=== PATIENT | female | born 1950 | race Caucasian/White ===

== ENCOUNTER 2018-12-19 09:40 | Emergency (ER) | payer MEDICARE ==
--- NOTE | 2018-12-19 10:05 | ED ---
Altered Mental Status - HPI Summary HPI Summary: 68-year-old female with a significant past medical history of atrial fibrillation, hypothyroidism, type 2 diabetes [id number], cataracts reports the emergency department today for complaints of multiple episodes of confusion over the last week. She states the first time this occurred was one week ago on 12/12. She states during this episode she was working and was unable to follow commands and was disoriented to her location within the building. She presented to the emergency department today because she had another of these episodes while working. 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 She says she has been having difficulty controlling her blood sugar recently and believes this may be the culprit. She denies any recent illness or physical pain. At the bedside she is alert and oriented to person, place, time. She states she has been taking her medications as directed and is working with her primary for blood sugar control. She denies fever, chest pain , abdominal pain, pain with urination, headache, no new changes in vision. She denies recent recreational drug use, alcohol use. - History Of Current Complaint Chief Complaint: EDDiabeticProb Stated Complaint: HIGH BLOOD SUGAR Time Seen by Provider: 12/19/18 09:49 Hx Obtained From: Patient Onset/Duration: Unknown Timing: Intermittent Severity Initially: Mild Severity Currently: Mild Character: Confusion Aggravating Factor(s): Unknown Alleviating Factor(s): Unknown Associated Signs And Symptoms: Negative: Dizziness, Nausea, Vomiting, Headache, Weakness, Recently Depressed, Recent Trauma Related History: Similar Episode/Diagnosed As: - She states she had one similar episode one week ago on 12/12/2018 - Allergies/Home Medications Allergies/Adverse Reactions: Allergies Allergy/AdvReac Type Severity Reaction Status Date / Time morphine Allergy Difficulty Verified 12/19/18 09:49 Breathing sulfamethoxazole Allergy Unknown Verified 12/19/18 09:49 [From Bactrim] Reaction Details trimethoprim [From Bactrim] Allergy Unknown Verified 12/19/18 09:49 Reaction Details Home Medications: Home Medications Hydrocortisone 1% CREAM(NF) [Hytone Cream 1%*] 1 applic TOPICAL BID 12/19/18 [ History Confirmed 12/19/18] Nateglinide(NF) [Starlix(NF)] 60 mg PO TID WITH MEALS 12/19/18 [History Confirmed 12/19/18] Nystatin OINT* 1 applic TOPICAL BID 12/19/18 [History Confirmed 12/19/18] Pregabalin CAP(*) [Lyrica CAP(*)] 25 mg PO TID MDD 3 caps 12/19/18 [History Confirmed 12/19/18] PMH/Surg Hx/FS Hx/Imm Hx Endocrine/Hematology History: Reports: Hx Diabetes, Hx Thyroid Disease, Hx Anemia - during menstrual years Denies: Hx Anticoagulant Therapy, Hx Blood Disorders, Hx Blood Transfusions, Hx Bone Marrow Disease, Hx Systemic Lupus Erythematosus, Hx Sickle Cell Disease , Hx Unexplained Bleeding Cardiovascular History: Reports: Hx Cardiomegaly - pt states Dr De La Rosa said her heart was enlarged, Hx Hypertension - on medication, Hx Valvular Heart Disease - States one of her valves is enlarged, Other Cardiovascular Problems/Disorders - thoracic aorta ectasia Respiratory History: Denies: Hx Sleep Apnea, Other Respiratory Problems/Disorders GI History: Reports: Hx Gall Bladder Disease - Gall Stones (gall bladder removed in 1994, Hx Gastroesophageal Reflux Disease, Hx Hiatal Hernia, Hx Irritable Bowel, Other GI Disorders - cholecystectomy 1994 Denies: Hx Cirrhosis, Hx Crohn's Disease, Hx Diverticulosis, Hx Gastrointestinal Bleed, Hx Jaundice, Hx Obstructive Bowel, Hx Ileostomy, Hx Pyloric Stenosis, Hx Ulcer History: Reports: Other Problems/Disorders - Hx of occasional UTIs Musculoskeletal History: Reports: Hx Arthritis - neck, shoulders, and back, Hx Back Problems - pain from arthritis, Other Musculoskeletal History - ganglion right wrist Denies: Hx Rheumatoid Arthritis, Hx Bursitis, Hx Congenital Bone Abnormalities, Hx Fibromyalgia, Hx Gout, Hx Orthopedic Injury, Hx Osteoporosis, Hx Scoliosis, Hx Tendonitis Sensory History: Reports: Hx Cataracts - early stages, Hx Contacts or Glasses - glasses, Hx Vision Problem Denies: Hx Legally Blind, Hx Macular Degeneration, Hx Deafness, Hx Hearing Aid, Hx Hearing Problem Opthamlomology History: Reports: Hx Cataracts - early stages, Hx Contacts or Glasses - glasses, Hx Vision Problem Denies: Hx Legally Blind, Hx Macular Degeneration Neurological History: Reports: Hx Headaches - tension headaches in the past, Other Neuro Impairments/Disorders - HAS INJURED RT SI JOINT PREVIOUSLY Psychiatric History: Reports: Hx Anxiety - on medication, Hx Depression - on medication, Hx Community Mental Health Tx Denies: Hx Attention Deficit Hyperactivity Disorder, Hx Eating Disorder, Hx Panic Disorder, Hx Post Traumatic Stress Disorder, Hx Inpatient Treatment, Hx Schizophrenia, Hx Bipolar Disorder, Hx Suicide Attempt, Hx of Violent Episodes Against Others, Hx Substance Abuse - Cancer History Hx Chemotherapy: No Hx Radiation Therapy: No - Surgical History Surgery Procedure, Year, and Place: BILATERAL CARPAL TUNNEL, TUBAL LIGATION, CHOLECYSTECTOMY. LEFT SHOULDER ROTATOR CUFF REPAIR Hx Anesthesia Reactions: Yes - 1994 had trouble breathing, thinks it was from the morphine Infectious Disease History: No Infectious Disease History: Denies: Hx Hepatitis, Traveled Outside the [place] in Last 30 Days - Family History Family History: No FHx of breast CA. - Social History Alcohol Use: None Alcohol Amount: Less than once a month Substance Use Type: Reports: None Smoking Status (MU): Never Smoked Tobacco Review of Systems Constitutional: Negative Eyes: Negative Cardiovascular: Negative Respiratory: Negative Gastrointestinal: Negative Genitourinary: Negative Musculoskeletal: Negative Skin: Negative Neurological: Negative All Other Systems Reviewed And Are Negative: Yes Physical Exam Triage Information Reviewed: Yes Vital Signs On Initial Exam: Initial Vitals Temp Pulse Resp BP Pulse Ox 98 F 56 18 145/66 96 12/19/18 09:44 12/19/18 09:44 12/19/18 09:44 12/19/18 09:44 12/19/18 09:44 Vital Signs Reviewed: Yes Appearance: Positive: Well-Appearing, No Pain Distress, Well-Nourished Skin: Positive: Warm, Skin Color Reflects Adequate Perfusion Head/Face: Positive: Normal Head/Face Inspection Eyes: Positive: Normal, EOMI ENT: Positive: Hearing grossly normal Respiratory/Lung Sounds: Positive: Clear to Auscultation, Breath Sounds Present Cardiovascular: Positive: RRR, S1, S2 Abdomen Description: Positive: Nontender, Soft. Negative: Distended, Guarding Bowel Sounds: Positive: Present Musculoskeletal: Positive: Strength/ROM Intact Neurological: Positive: Sensory/Motor Intact, Alert, Oriented to Person Place, Time, Normal Gait, Speech Normal. Negative: Cerebellar Dysfunction, Disoriented , Ataxic Gait, Facial Symmetry Psychiatric: Positive: Normal AVPU Assessment: Alert Procedures - Sedation Patient Received Moderate/Deep Sedation with Procedure: No Diagnostics - Vital Signs Vital Signs Temp Pulse Resp BP Pulse Ox 12/19/18 09:44 98 F 56 18 145/66 96 - Laboratory Result Diagrams: 12/19/18 10:21 12/19/18 10:21 Lab Statement: Any lab studies that have been ordered have been reviewed, and results considered in the medical decision making process. Altered Mental Statu Course/Dx - Course Course Of Treatment: Patient presented to the emergency department and promptly was seen and evaluated. An EKG was performed which showed sinus bradycardia at a rate of 53 bpm. There is evidence of first-degree block which is new when compared to prior EKGs performed on 02/28/2006. There is left axis deviation with evidence of a left anterior fascicular block and probable left ventricular hypertrophy. There is evidence of Q waves but these are also found on prior EKGs. Upon arrival at point of care fingerstick blood glucoses performed and revealed a blood sugar of 249. Laboratory studies to investigate metabolic abnormalities which could explain her confusion were ordered as well as a CT of the brain without contrast to look for any central neurologic pathology causing her symptoms especially considering her history of atrial fibrillation. Laboratory studies resulted showing no signs of anemia or leukocytosis. Chemistry panel revealed mild hyponatremia however this is incorrect due to the hyperglycemia blood sugar of 301. Her corrected sodium is 137, which is normal. Her kidney function is elevated however this is her baseline. Her TSH resulted as 3.21 which is within normal limits. Patient was unable to produce a urine sample however although urinary tract infections may cause altered mental status especially in this population, the patient feels she does not have UTI as she has had them in the past and she is currently asymptomatic of all dysuria, urgency, frequency, fever. 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 The patient's orientation, mentation, vital signs remained stable during the duration of her stay. She was ambulated and did this with no difficulty or signs of deficits. It was deemed that there is no acute medical emergency and she is to follow-up with her primary care provider for further evaluation of her symptoms. She agrees with this plan. She was informed to return to the emergency department if she develops any new or worsening symptoms. - Diagnoses Differential Diagnosis/HQI/PQRI: Metabolic Disorder, TIA, Other - hypothyroidism Provider Diagnoses: Confusion Discharge ED - Sign-Out/Discharge Documenting (check all that apply): Patient Departure - Discharge Plan Condition: Stable Disposition: HOME Patient Education Materials: Altered Mental Status (ED) Forms: *Work Release Referrals: Juan Tate MD [Primary Care Provider] - Additional Instructions: You were seen in the emergency department today due to episodic confusion. Laboratory studies and a CT of your head showed no acute abnormalities and no life-threatening pathology. Please follow-up with your primary care provider for further investigation of your symptoms. Please return to emergency department if you develops any new or worsening symptoms. Please refrain from any recreational drugs or alcohol use until you are evaluated by medical professional. Please continue taking her medications as directed. - Billing Disposition and Condition Condition: STABLE Disposition: Home
--- OUTSIDE RECORDS SUMMARY | 2018-12-19 10:24 | XMS REPORT | Continuity of Care Document ---
:1950 External Reference #:[id number] Author Name Lon Miller M.D. Address [address] [place] [address] Care Team Providers Name Role Phone Juan Tate M.D. - Internal Care Team Information Director Of Psychiatry Medicine Wilber De La Rosa M.D. - Cardiovascular Care Team Information Director Of Psychiatry Disease Fabián Ziegler M.D. - Endocrinology, Care Team Information Director Of Psychiatry [phone] Diabetes & Metabolism Problems Active Problems Provider Date Supraventricular tachycardia Onset: Type 2 diabetes mellitus Onset: Note: 2002 Mixed anxiety and depressive disorder Onset: Essential hypertension Onset: Combined form of senile cataract Lon Miller M.D. Onset: 03/07/2016 Type 2 diabetes mellitus with mild Lon Miller M.D. Onset: 12/17/2018 nonproliferative diabetic retinopathy without macular edema, bilateral Social History Type Date Description Comments Sex Unknown ETOH Use Occasionally consumes alcohol Tobacco Use Start: Unknown Patient has never smoked Smoking Status Reviewed: 12/17/18 Patient has never smoked Allergies, Adverse Reactions, Alerts Active Allergies Reaction Severity Comments Date Morphine 03/07/2016 Medications Active Medications SIG Qnty Indications Ordering Provider Date Artificial Tears as needed Lon Miller, 09/16/2017 0.1-0.3% M.D. Solution Abilify Unknown 2mg Tablets Levothyroxine Sodium Unknown 75mcg Tablets Magnasweet 135 Unknown 135 Powder Benefiber Unknown Powder Fish Oil + D3 Unknown [id number] Capsules Wilber Joshi M.D. 300mg Caps ER 24HR Juan Valverde 5mg Tablets M.D. Vitamin B12 Unknown 1000mcg Tablets ER Buspirone HCL Unknown 10mg Tablets Calcium 500 + D 2 every day Unknown [id number] Tablets Multi Vitamin Daily Unknown Tablets Aspirin Unknown 81mg Tablets DR Wxqms-0-Mari Ethyl Esters Unknown 1gm Capsules Metoprolol Succinate ER Unknown 100mg Tablets ER 24HR Metformin HCL Unknown 1000mg Tablets Sertraline HCL Unknown 100mg Tablets Lisinopril-Hydrochlorothi Unknown azide 20-25mg Tablets Potassium Chloride Maryann Unknown ER 10Meq Tablets ER Omeprazole Unknown [address]mg C[address] DR Diltiazem HCL ER Unknown 240mg Caps ER 24HR Immunizations Description No Information Available Vital Signs Description No Information Available Results Description No Information Available Procedures Description No Information Available Medical Devices Description No Information Available Encounters Description No Information Available Assessments Date Code Description Provider 12/17/2018 H25.813 Combined forms of age-related cataract, Lon Miller M.D. bilateral 12/17/2018 E11.3293 Type 2 diabetes mellitus with mild Lon Miller M.D. nonproliferative diabetic retinopathy without macular edema, bilateral Plan of Treatment 12/17/2018 - Lon Miller M.D.H25.813 Combined forms of age-related cataract , bilateralComments:Smoking can increase the risk of developing or worsening any eye related disease, as well as affect your overall health. If you are a smoker, we strongly recommend that you quit.If you are not a smoker, we strongly recommend that you do not start. You have been diagnosed with cataracts. They are limiting your vision, and I am unable to improve you with new glasses. Our next step is to schedule Cataract surgery and all necessary appointments, which Deyanira will do for you. We recommend that you write down any questions you may have and bring them to your preoperative appointment so that Dr. Tellez answer them for you. If you have any questions or concerns, you can reach Deyanira Guevara at .Follow up:For preop exam before surgery.E11.3293 Type 2 diabetes mellitus with mild nonproliferative diabetic retinopathy without macular edema, bilateralComments:I can detect diabetic changes in your eyes. Proper control of your diabetes is important for the health of your eyes. It is important that you keep all of your follow up appointments. Dr. Miller has sent a report to your primary care doctor, letting them know the current status of your retina. Functional Status Description No Information Available Mental Status Description No Information Available Referrals Description No Information Available
--- OUTSIDE RECORDS SUMMARY | 2018-12-19 10:24 | XMS REPORT | Continuity of Care Document ---
:1950 External Reference #:[id number] Author Name Eleazar Ziegler MD (transmitted by agent of provider Peg Ray) Address [address] [place] [address] Problems Active Problems Provider Date Paroxysmal supraventricular Wilber De La Rosa M.D., [facility], Onset: 10/27/2013 tachycardia [facility] Essential hypertension Wilber De La Rosa M.D., [facility], Onset: 10/18/2015 [facility] Thoracic aortic ectasia Wilber De La Rosa M.D., [facility], Onset: 10/18/2015 [facility] Social History Type Date Description Comments Sex Unknown Tobacco Use Start: Unknown not smoking Pt denies ever smoking a pipe, cigar, e-cigarettes, or using chewing tobacco. ETOH Use Rarely consumes alcohol Tobacco Use Start: Unknown End: Patient is a former smoked a couple Unknown smoker times as a teenager. No other time . Recreational Drug Use Denies Drug Use Smoking Status Reviewed: 12/12/18 Patient is a former smoked a couple smoker times as a teenager. No other time . Exercise Type/Frequency Exercises regularly walking daily for work Allergies, Adverse Reactions, Alerts Active Allergies Reaction Severity Comments Date Morphine SOB Severe 10/27/2013 Medications Active Medications SIG Qnty Indications Ordering Date Provider Metformin HCL ER 2 tablets by 60tabs Eleazar Ziegler MD 12/12/2018 750mg mouth every day Tablets ER 24HR at bedtime Pioglitazone HCL take 15mg once 30tabs E11.65 Eleazar Ziegler MD 12/12/2018 15mg daily Tablets Diltiazem CD 1 by mouth every 90caps Wilber Kumar 04/24/2016 300mg Caps day Vivian De La Rosa, ER 24HR [facility] Pregabalin 1 capsule 3 Unknown 25mg Capsules times per day, code c Levothyroxine Sodium 1 by mouth every Unknown day 75mcg Tablets Nateglinide 1-2 tabs by 150tabs Eleazar Ziegler MD 60mg Tablets mouth three times a day before meals Aripiprazole 1 tab by mouth Graham Campos, 2mg Tablets daily Omeprazole 1 by mouth every Unknown 40mg Capsules day Magnesium 1 tablet po Unknown daily Potassium Chloride 1 tablet po Juan Tate Maryann ER twice daily AMD Mathew 20Meq Tablets ER Benefiber 1 tbs in coffee Unknown Powder once daily Anti-Diarrheal 1 cap po b.i.d Unknown Calcium + D3 2 by mouth every 90tabs Unknown day pm [id number] Tablets Sertraline HCL 2 tablet po in 90tabs Unknown 100mg the am Tablets Metoprolol Tartrate 1 by mouth twice Unknown 100mg a day Tablets Lisinopril-Hydrochloro 1 tablet po 30tabs Unknown thiazide b.i.d 20-25mg Tablets Buspirone HCL take 1 tablet 45tabs Unknown 30mg and 1/2 tablet Tablets Am/PM Multivitamins daily Unknown Acetaminophen Extra 1-2 tabs by 120tabs Unknown Strength mouth every 8 500mg Tablets hours as needed for pain or fever Medications Administered in Office Medication SIG Qnty Indications Ordering Provider Date Celestone 3 mg and 3mg Carmine Peña MD 04/27/2017 Injection Inj, Regadenoson, 0.1 MG Wilber De La Rosa M.D., 04/03/2016 Injection THANH MARSHALL Aminophylline Wilber De La Rosa M.D., 04/03/2016 Injection THANH MARSHALL Technetium TC 99M Wilber De La Rosa M.D., 04/03/2016 Tetrofosmin, Per Unit Dose Up THANH MARSHALL To 40 Millicuries Injection Inj, Regadenoson, 0.1 MG Wilber De La Rosa M.D., 09/20/2012 Injection THANH MARSHALL Technetium TC 99M Wilber De La Rosa M.D., 09/20/2012 Tetrofosmin, Per Unit Dose Up [facility], FAS[facility] To 40 Millicuries Injection Immunizations Description No Information Available Vital Signs Date Vital Result Comment 12/12/2018 3:46pm Height 61.5 inches 5'1.50" Weight 138.00 lb w/ shoes Heart Rate 73 /min BP Systolic Sitting 152 mmHg BP Diastolic Sitting 82 mmHg BMI (Body Mass Index) 25.6 kg/m2 09/06/2018 10:40am Height 61.5 inches 5'1.50" Weight 137.00 lb Heart Rate 76 /min regular BP Systolic Sitting 134 mmHg LA Regular Cuff BP Diastolic Sitting 98 mmHg LA Regular Cuff BP Systolic Standing 136 mmHg LA Regular Cuff BP Diastolic Standing 98 mmHg LA Regular Cuff Respiratory Rate 16 /min Pain Level 0 O2 % BldC Oximetry 96 % BMI (Body Mass Index) 25.5 kg/m2 Results Test Acquired Date Facility Test Result H/L Range Note Laboratory test 10/17/2018 [facility] Rubella Screen Immune Immune finding [address] [place], [place] [id number] [phone] Mumps Igg 10/17/2018 [facility] Mumps Virus Positive [address] [place] [address] [phone] Mumps IgG Antibody Index 4.6 2 Rubeola Measles 10/17/2018 [facility] Rubeola (Measles) Positive [address] Igg [address] IgG Antibody [place], [place] [id number] [phone] Rubeola IgG Antibody Index 4.0 4 Varicella Zoster 10/17/2018 [facility] Varicella-Zoster IgG Positive 5 Igg AB [address] [place] [address] [phone] Varicella IgG Antibody Index 3.4 6 Quantiferon-TB 10/17/2018 [facility] QuantiferonTb Negative Negative 7 Gold Plus [address] [place] [address] [phone] TB1 Ag minus Nil Result 0.00 IU/mL TB2 Ag minus Nil Result -0.01 IU/mL Mitogen minus Nil Result 11.37 IU/mL Nil Result 0.02 IU/mL 1 Results suggest response to immunization or prior exposure to the virus. REFERENCE VALUE Vaccinated: Positive (>=1.1 AI) Unvaccinated: Negative (<=0.8 AI) 2 Test Performed by: [place] [address] [employer] Shirring Machine Operator: Tad Ochoa M.D. Ph.D.; CLIA# [id number] 3 Results suggest response to immunization or prior exposure to the virus. REFERENCE VALUE Vaccinated: Positive (>=1.1 AI) Unvaccinated: Negative (<=0.8 AI) 4 Test Performed by: [facility] [place] [address] Automatic Shirring Machine Operator: Tad Ochoa M.D. Ph.D.; CLIA# [id number] 5 Results suggest response to immunization or prior exposure to the virus. REFERENCE VALUE Vaccinated: Positive (>=1.1 AI) Unvaccinated: Negative (<=0.8 AI) 6 Test Performed by: [place] [address] Automatic Shirring Machine Operator: Tad Ochoa M.D. Ph.D.; CLIA# [id number] 7 M. tuberculosis infection NOT likely Procedures Date Code Description Status 09/06/2018 71431 EKG Tracing & Interpretation Completed Medical Devices Description No Information Available Encounters Type Date Location Provider Dx Diagnosis Office Visit 09/06/2018 Cardiology Wilber Kumar I77.810 Thoracic aortic 11:30a [facility]ian [facility] La [facility] I10 Essential (primary) hypertension I47.1 Supraventricular tachycardia R94.31 Abnormal electrocardiogram [ECG] [EKG] Assessments Date Code Description Provider 12/12/2018 E11.65 Type 2 diabetes mellitus with Eleazar Ziegler MD hyperglycemia 10/17/2018 Z02.1 Encounter for pre-employment Reddy Denny MD examination 10/17/2018 Z02.83 Encounter for blood-alcohol and Reddy Denny MD blood-drug test 09/06/2018 I77.810 Thoracic aortic ectasia Wilber De La Rosa M.D., [facility] 09/06/2018 I10 Essential (primary) hypertension Wilber De La Rosa M.D., [facility] 09/06/2018 I47.1 Supraventricular tachycardia Wilber De La Rosa M.D., [facility] 09/06/2018 R94.31 Abnormal electrocardiogram [ECG] [EKG] Wilber De La Rosa M.D., [facility] Plan of Treatment Future Appointment(s):04/02/2019 4:00 pm - Eleazar Ziegler MD at [place] [facility]12/12/2018 - Eleazar Ziegler MDE11.65 Type 2 diabetes mellitus with hyperglycemiaNew Medication:Pioglitazone HCL 15 mg - take 15mg once dailyFollow up:3 monthsInstructions:1. Finish Tradjenta, then stop. 2. Change to metformin ER 1500mg at bedtime. 3. Increase [id number] tablets, as follows: - 1 tablet with most meals - 2 tablets with large meals 3. Start pioglitazone 15mg once daily in the morning. 4. Reduce or eliminate carbohydrates in the foods you eat. Functional Status Description No Information Available Mental Status Description No Information Available Referrals Description No Information Available
[2018-12-19 10:35] LABS: ABS Basophils 0.1 10^3/ul (0-0.2); ABS Eosinophils 0.1 10^3/ul (0-0.6); ABS Lymphocytes 2.2 10^3/ul (1.0-4.8); ABS Monocytes 0.4 10^3/ul (0-0.8); ABS Neutrophils 5.4 10^3/ul (1.5-7.7); Eosinophil % 1.7 %; Hematocrit 40 % (35-47); Hemoglobin 13.7 g/dL (12.0-16.0); Lymphocyte % 27.4 %; Mean Corpuscular HGB Conc 35 g/dL (31-36); Mean Corpuscular Hemoglobin 32 pg (27-31); Mean Corpuscular Volume 92 fL (80-97); Platelet Count 311 10^3/uL (150-450); Red Blood Count 4.34 10^6 /uL (3.70-4.87); Red Cell Distribution Width 14 % (10-15); White Blood Count 8.2 10^3/uL (3.5-10.8)
[2018-12-19 10:51] LABS: Albumin 4.1 g/dL (3.2-5.2); Albumin/Globulin Ratio 1.5 (1-3); BUN/Creatinine Ratio 29.2 (8-20); Calcium 9.5 mg/dL (8.6-10.3); EGFR African American 54.2 (>60); EGFR Non-African American 44.8 (>60); Globulin 2.8 g/dL (2-4); Potassium 3.8 mmol/L (3.5-5.0); Total Bilirubin 0.2 mg/dL (0.2-1.0); Total Protein 6.9 g/dL (6.4-8.9)
[2018-12-19 10:52] LABS: Troponin I 0.01 ng/mL (<0.04)
[2018-12-19 12:16] LABS: TSH (Thyroid Stimulating Horm) 3.21 mcIU/mL (0.34-5.60)
[2018-12-19 13:22] VITALS: BP 122/74
[2018-12-19 15:06] LABS: Free T4 1.04 ng/dL (0.61-1.12)
== END 2018-12-19 13:10 | disposition home or self-care (01) ==
LOC: ED 09:40
DX: R41.0 Disorientation, unspecified (principal); E11.9 Type 2 diabetes mellitus without complications; E03.9 Hypothyroidism, unspecified; I10 Essential (primary) hypertension; I77.810 Thoracic aortic ectasia; F41.9 Anxiety disorder, unspecified; F32.9 Major depressive disorder, single episode, unspecified; Z98.51 Tubal ligation status; Z90.49 Acquired absence of other specified parts of digestive tract; Z79.84 Long term (current) use of oral hypoglycemic drugs; Z79.890 Hormone replacement therapy; Z79.899 Other long term (current) drug therapy; Z88.1 Allergy status to other antibiotic agents; Z88.5 Allergy status to narcotic agent; Z88.2 Allergy status to sulfonamides
CPT/HCPCS: 36415; 70450; 80053; 84439; 84443; 84484; 85025; 93005; 99283

== ENCOUNTER 2021-12-08 17:57 | Observation (INO) ==
[2021-12-08] MEDS ORDERED: Albuterol HFA INHALER 8 gm MDI INH ONE (20:13)
[2021-12-08] MEDS ORDERED: Dexamethasone IV 4 MG/ML VIAL 1 ml VIAL IV SLOW PU ONE (20:13)
[2021-12-08 20:33] LABS: ABS Eosinophils 0.1 10^3/ul (0-0.6); ABS Lymphocytes 1.3 10^3/ul (1.0-4.8); ABS Monocytes 0.5 10^3/ul (0-0.8); ABS Neutrophils 6.2 10^3/ul (1.5-7.7); Eosinophil % 1.5 %; Hematocrit 33 % (35-47); Hemoglobin 10.5 g/dL (12.0-16.0); Lymphocyte % 15.6 %; Mean Corpuscular HGB Conc 32 g/dL (31-36); Mean Corpuscular Hemoglobin 27 pg (27-31); Mean Corpuscular Volume 84 fL (80-97); Mean Platelet Volume 7.4 fL (7.4-10.4); Platelet Count 214 10^3/uL (150-450); Red Cell Distribution Width 16 % (10-15); White Blood Count 8.1 10^3/uL (3.5-10.8)
[2021-12-08 22:02] LABS: Albumin 4.3 g/dL (3.2-5.2); Albumin/Globulin Ratio 1.4 (1-3); Calcium 9.2 mg/dL (8.6-10.3); Potassium 3.7 mmol/L (3.5-5.0); Total Bilirubin 0.3 mg/dL (0.2-1.0); Total Protein 7.3 g/dL (6.4-8.9); eGFR CKD-EPI 24.2 (>60)
[2021-12-08 22:18] LABS: High Sensitivity Troponin 1 Hr 13 pg/mL (<15)
[2021-12-08] MEDS ORDERED: Ondansetron 4 mg VIAL 2 MG/ML 2 ml VIAL IV PRN (23:26)
[2021-12-09] MEDS ORDERED: Albuterol HFA INHALER 8 gm MDI INH PRN (00:17)
[2021-12-09] MEDS ORDERED: NFT: IPRATROPIUM BR (NF)0.06% NASAL 1 SPRAY BTL BOTH NARES PRN (00:17)
[2021-12-09] MEDS ORDERED: Dextrose 50% Syringe 50 ml 25 GM/50 ML SYRINGE IV PUSH PRN (00:20)
[2021-12-09] MEDS ORDERED: Enoxaparin 30 MG/0.3 ML SYR SUBCUT SCH (00:30)
[2021-12-09 06:14] LABS: ABS Lymphocytes 1.1 10^3/ul (1.0-4.8); ABS Monocytes 0.2 10^3/ul (0-0.8); ABS Neutrophils 6.7 10^3/ul (1.5-7.7); Hematocrit 32 % (35-47); Hemoglobin 10.6 g/dL (12.0-16.0); Lymphocyte % 14.1 %; Mean Corpuscular HGB Conc 33 g/dL (31-36); Mean Corpuscular Hemoglobin 28 pg (27-31); Mean Corpuscular Volume 85 fL (80-97); Mean Platelet Volume 7.4 fL (7.4-10.4); Platelet Count 200 10^3/uL (150-450); Red Blood Count 3.76 10^6 /uL (3.70-4.87); Red Cell Distribution Width 15 % (10-15)
[2021-12-09 06:46] LABS: Calcium 9.1 mg/dL (8.6-10.3); Potassium 3.9 mmol/L (3.5-5.0); eGFR CKD-EPI 29.2 (>60)
[2021-12-09] MEDS ORDERED: Remdesivir 100 mg Vial 200 MG in NS 0.9% 250 ml 210 ML IV ONE (07:20)
[2021-12-09] MEDS ORDERED: Nystatin TOP POWDER 15 GM BTL TOPICAL SCH (09:00)
[2021-12-09 14:25] VITALS: BP 97/50
[2021-12-10] MEDS ORDERED: Insulin GLARGINE 100 un/ml 10 ml VIAL SUBCUT SCH (09:00)
== END 2021-12-09 16:30 | disposition home or self-care (01) ==
LOC: EDHOLD 17:57 → ED 17:57 → SUATTDRO 23:26 → MED 12-09 08:13
PROVIDERS: ADMIT Internal Medicine; ATTEND Internal Medicine